=== PATIENT | male | born 1985 | race Hispanic/Latino ===

== ENCOUNTER 2021-03-14 10:30 | Outpatient (RCR) | payer OTHER, SELFPAY ==
--- NOTE | 2021-02-18 10:51 | HP.PTEVAL_ITS ---
Patient's Visit Information SHELLEY LARSON is a 35 year old M referred to Physical Therapy by Dr. De Gongora MD with a diagnosis of L gastroc rupture. Date of Evaluation: 02/18/21 Physical Therapist: Demetris Mahmood, PT, ATC - Visit Plan Frequency: 3x /Week Duration: 3 Weeks Plan: L gastroc stretching, strengthening, DTR, balance and prorio, bike, and HEP. US/CP for pain - Subjective DOI: 01/07/21. Pt reports he jumped out of a trailer at work and injured his L gastroc. Pt reports he has been working a lot of hours and believes his body was just tired. Pt reports he was sore at first, but was able to still ambulate at that time. Pt reports he awoke the next morning and was not able to walk on his L LE. Pt reports he had xrays, and was just approved an MRI today. pt reports his L calf pain has improved some over the last month, but he still has pain with walking. Pt reports he has stairs at home and negotiates them one at a time. Pt denies tingling or numbness in L LE. Pt reports no sleep difficulty secondary to pain, but notes he takes pain meds before bed. 2/10 pain in L gastroc at rest, 5/10 pain at worst (when he attempts to ambulate) - Pain L gastroc Pain Intensity (Out of 10): 2 Pain Intensity Range: 4 - Objective Neuro: B LE sensation is WNL to light touch. palpation: Mild pain on musculotendious junction of L calf. No obvious deformity at this time. MMT: L ankle PF and Inv are rated at 4-/5 and painful. All other B LE MMT 5/5 throughout. ROM: R ankle DF= 10, PF= 65; L ankle DF= -5, PF= 45. Gait: Pt ambulates PWB'ing with 2 crutches - Goals Goal 1:: Decrease L gastroc pain x 50% to aid with ambulation Goal Time Frame: 4-6 Weeks Goal 2:: Increase L ankle DF ROM x 15 degrees to aid with restoring a normalized gait pattern Goal Time Frame: 4-6 Weeks Goal 3:: Increase L ankle PF strength to 5/5 to aid with RTW without limitation Goal Time Frame: 4-6 Weeks Goal 4:: I with HEP Goal Time Frame: 4-6 Weeks - Rehabilitation Potential Physical Therapy Diagnosis: Pt has Lcalf pain, weakness, and limited flexibility secondary to L gastroc strain Rehabilitation Potential: Good - Anticipated Interventions Patient/Client Instruction: Educate patient on: Condition, Plan of Care For the Purpose of:: To improve self management Therapeutic Exercise to Include: Strength training, Balance training, Flexibilty training, Gait and locomotor training, Passive ROM, Active ROM For the Purpose of:: To decrease pain, To increase ROM, To improve muscle performance and motor function Cryotherapy (ice pack, ice massage): Yes Ultrasound (thermal/non thermal): Yes For the Purpose of:: To decrease pain Thank you for the opportunity to evaluate your patient. For Medicare and Medicare HMO plans, please review the plan of care and approve it. It will need to be FAXED BACK to us at [phone] for Medicare purposes. For Medicare only, by signing this I certify the plan of care. Please let me know if there are questions or concerns regarding this plan of care. Physician Signature: Date:
--- NOTE | 2021-03-14 11:05 | HP.PTDCSUM ---
It has been my pleasure to treat SHELLEY LARSON referred by Dr. De Gongora MD, with the diagnosis of L gastroc rupture for a total of 8 visit(s). Discharge Date: Please see the following information for a summary of their discharge status. Subjective: Pt reports he feels ready for discharge L gastroc Pain Intensity (Out of 10): 0 Objective/Function: Pt reports he has had no pain for the last 1 1/2 weeks. L ankle DF= 14 degrees. L ankle PF= 5/5 throughout. Pt is I with HEP. Rx goals achieved Goal 1:: Decrease L gastroc pain x 50% to aid with ambulation Goal Progress: Goal Met Goal 2:: Increase L ankle DF ROM x 15 degrees to aid with restoring a normalized gait pattern Goal Progress: Goal Met Goal 3:: Increase L ankle PF strength to 5/5 to aid with RTW without limitation Goal Progress: Goal Met Goal 4:: I with HEP Goal Progress: Goal Met Plan: Discharge If there are questions or concerns regarding this patient's physical therapy, please feel free to call me at [phone]. Thank you for the referral of this patient. Sincerely, Demetris Mahmood, PT, ATC Balance/Gait/Functional tests - Balance/Special Test Scores Lower Extremity Functional Score: 64
== END 2021-03-14 19:00 | disposition home or self-care (01) ==
LOC: PT 10:30
PROVIDERS: Referring Provider Orthopaedic Surgery; Visit Provider Orthopaedic Surgery
DX: S86.112D Strain of other muscle(s) and tendon(s) of posterior muscle group at lower leg level, left leg, subsequent encounter (principal); X58.XXXD Exposure to other specified factors, subsequent encounter; Y99.0 Civilian activity done for income or pay
CPT/HCPCS: 97035; 97110; 97140; 97161; 97164